=== PATIENT | male | born 1965 | race African-American/Black ===

== ENCOUNTER 2020-11-02 08:45 | Inpatient (IN) ==
[~2020-11-02 08:45] MED LIST: ALVIMOPAN 12 MG CAPSULE PO ONE; ERTAPENEM 1,000 MG in SODIUM CHLORIDE 0.9% 100 ML IV ONE
[2020-11-02] MEDS ORDERED: LACTATED RINGERS 1,000 ML IV SCH (10:00)
[2020-11-02] MEDS ORDERED: ERTAPENEM 1,000 MG in SODIUM CHLORIDE 0.9% 100 ML IV ONE (10:30)
[2020-11-02] MEDS ORDERED: FAMOTIDINE 20 MG TABLET PO ONE (10:32)
[2020-11-02] MEDS ORDERED: DIAZEPAM 5 MG TABLET PO ONE (10:32)
[2020-11-02] MEDS ORDERED: ERTAPENEM 1,000 MG VIAL ONE (10:41)
[2020-11-02] MEDS ORDERED: propofoL 200 MG/20 ML VIAL IV ONE (11:41)
[2020-11-02] MEDS ORDERED: LIDOCAINE 2% 5 ML VIAL ONE (11:41)
[2020-11-02] MEDS ORDERED: ONDANSETRON 4 MG/2 ML VIAL ONE (11:41)
[2020-11-02] MEDS ORDERED: MIDAZOLAM 2 MG/2 ML VIAL ONE (11:42)
[2020-11-02] MEDS ORDERED: fentaNYL 100 MCG/2 ML VIAL ONE (11:42)
[2020-11-02] MEDS ORDERED: TISSUE ADHESIVE 1 EACH APPLICATOR TOP ONE (11:44)
[2020-11-02] MEDS ORDERED: INDOCYANINE GREEN 25 MG VIAL IV ONE (11:44)
[2020-11-02] MEDS ORDERED: BUPIVACAINE MPF 0.25% 30 ML VIAL ONE (11:51)
[2020-11-02] MEDS ORDERED: DEXAMETHASONE 4 MG/1 ML VIAL ONE (11:53)
[2020-11-02] MEDS ORDERED: ePHEDrine 50 MG/ML VIAL ONE (12:46)
[2020-11-02] MEDS ORDERED: PHENYLEPHRINE 10 MG/1 ML VIAL IV ONE (13:49)
[2020-11-02] MEDS ORDERED: SODIUM CHLORIDE 0.9% 100 ML IV ONE (13:49)
[2020-11-02] MEDS ORDERED: SEVOFLURANE 1 UNIT/15 MINUTE INH ONE ×4 (14:02→15:07)
[2020-11-02] MEDS ORDERED: SUGAMMADEX 200 MG/2 ML VIAL IV ONE (14:46)
[2020-11-02] MEDS ORDERED: ONDANSETRON 4 MG/2 ML VIAL IV PRN (16:08)
[2020-11-02] MEDS ORDERED: DEXTROSE 50% 25 GM/50 ML VIAL IV PRN (16:08)
[2020-11-02] MEDS ORDERED: GLUCAGON 1 MG VIAL IM PRN (16:08)
[2020-11-02] MEDS ORDERED: HYDROmorphone 2 MG/1 ML VIAL IV PRN (16:08)
[2020-11-02] MEDS: KETOROLAC 30 MG/1 ML VIAL IV SCH ×2 (16:13→22:55)
[2020-11-02 16:50] LABS: Basophils % 0.3 % (0.0-0.8); Eosinophils % 0.3 % (0.00-10.9); Hematocrit 27.7 VOL% (42.0-52.0); Hemoglobin 8.1 GM/DL (14.0-18.0); Immature Granulocytes % 0.3 %; Immature Granulocytes Absolute 0.02 #; Lymphocytes # 0.3 10*3/uL (1.4-4.0); Lymphocytes % 5.7 % (21.2-54.2); Mean Corpuscular HGB Conc 29.2 GM/DL (32-36); Mean Corpuscular Volume 76.5 FL (87-102); Monocytes % 1.7 % (1.7-12.7); Neutrophils % 91.7 % (38.7-73.9); Platelet Count 398 T/CUMM (130-400); Red Blood Count 3.62 MC/CUMM (3.8-5.5); Red Cell Distribution Width 25.8 % (9.3-17.3); White Blood Count 5.8 T/CUMM (4-12)
[2020-11-02] MEDS: INSULIN REGULAR 100 UNIT/ML SUBCUT SCH ×2 (17:00→21:05)
[2020-11-02 17:08] LABS: Calcium 8.1 MG/DL (8.5-10.1); Osmolality,Calculated 281.7 MOS/KG (273-304); Potassium 4.4 MMOL/L (3.5-5.1)
[2020-11-02 17:33] LABS: Band Neutrophils 3 % (0-10); Lymphocytes 5 % (20-55); Segmented Neutrophils 90 % (50-85); Total Cells Counted 100
[2020-11-02] MEDS ORDERED: SIMVASTATIN 20 MG TABLET PO SCH (21:00)
[2020-11-02] MEDS: FERROUS SULFATE 325 MG TABLET PO SCH (21:04)
[2020-11-02] MEDS: ALVIMOPAN 12 MG CAPSULE PO SCH (21:05)
[2020-11-03] MEDS: LACTATED RINGERS 1,000 ML IV SCH ×2 (00:31→16:05)
[2020-11-03] MEDS: KETOROLAC 30 MG/1 ML VIAL IV SCH (03:16)
[2020-11-03 05:54] LABS: Basophils % 0.1 % (0.0-0.8); Hematocrit 24.1 VOL% (42.0-52.0); Hemoglobin 7.1 GM/DL (14.0-18.0); Immature Granulocytes % 0.3 %; Immature Granulocytes Absolute 0.04 #; Lymphocytes # 0.5 10*3/uL (1.4-4.0); Lymphocytes % 3.8 % (21.2-54.2); Mean Corpuscular HGB Conc 29.5 GM/DL (32-36); Mean Corpuscular Volume 75.8 FL (87-102); Monocytes % 4.2 % (1.7-12.7); Neutrophils % 91.6 % (38.7-73.9); Platelet Count 304 T/CUMM (130-400); Red Blood Count 3.18 MC/CUMM (3.8-5.5); Red Cell Distribution Width 25.9 % (9.3-17.3)
[2020-11-03 06:05] LABS: Calcium 8.1 MG/DL (8.5-10.1); Osmolality,Calculated 291.4 MOS/KG (273-304); Potassium 4.9 MMOL/L (3.5-5.1)
[2020-11-03 06:29] LABS: Band Neutrophils 15 % (0-10); Lymphocytes 2 % (20-55); Segmented Neutrophils 77 % (50-85); Total Cells Counted 100
[2020-11-03 06:30] LABS: Hypochromasia 1+; Microcytosis 1+; Ovalocytes Slight; Polychromasia Slight
[2020-11-03 06:31] LABS: Platelet Estimate Normal
[2020-11-03] MEDS: FERROUS SULFATE 325 MG TABLET PO SCH (08:36)
[2020-11-03] MEDS: ALVIMOPAN 12 MG CAPSULE PO SCH (08:37)
[2020-11-03] MEDS ORDERED: amLODIPine 10 MG TABLET PO SCH (09:00)
[2020-11-03] MEDS ORDERED: PANTOPRAZOLE 40 MG TABLET PO SCH (09:00)
[2020-11-03] MEDS ORDERED: ENOXAPARIN 40 MG/0.4 ML SYRINGE SUBCUT SCH (09:00)
[2020-11-03] MEDS: INSULIN REGULAR 100 UNIT/ML SUBCUT SCH ×3 (09:37→16:17)
[2020-11-03 12:57] LABS: Hematocrit 25.8 VOL% (42.0-52.0); Hemoglobin 7.4 GM/DL (14.0-18.0)
[2020-11-03 13:15] LABS: Osmolality,Calculated 286.4 MOS/KG (273-304)
[2020-11-03 17:03] VITALS: BP 108/48
== END 2020-11-03 17:51 | disposition home or self-care (01) | DRG 330 ==
LOC: N.OR 08:45 → N.SDSINP 09:41 → N.4E 15:45
PROVIDERS: ADMIT Surgery; ATTEND Surgery